=== PATIENT | male | born 1970 | race Caucasian/White ===

== ENCOUNTER 2018-10-29 00:44 | Emergency (ER) | payer SELFPAY ==
--- NOTE | 2018-10-29 01:16 | ERPHSYRPT ---
- History of Present Illness Time Seen by Provider: 10/29/18 01:00 Source: patient, police Exam Limitations: no limitations Physician History: Pt was arrested for drunk driving, he denies any injury or complaints, he is ambulating without help, alert and oriented x4, moderately intoxicated. He was brought here by [employer]ers. Timing/Duration: today Severity: moderate Modifying Factors: Improves With: nothing Associated Symptoms: denies symptoms - Review of Systems Constitutional: No Symptoms Eyes: No Symptoms Ears, Nose, & Throat: No Symptoms Respiratory: No Symptoms Cardiac: No Symptoms Abdominal/Gastrointestinal: No Symptoms Genitourinary Symptoms: No Symptoms Musculoskeletal: No Symptoms Skin: No Symptoms Neurological: No Symptoms Psychological: No Symptoms Hematologic/Lymphatic: No Symptoms All Other Systems: Reviewed and Negative - Nursing Vital Signs Nursing Vital Signs: Initial Vital Signs Temperature 97.7 F 10/29/18 01:27 Pulse Rate 101 H 10/29/18 01:27 Respiratory Rate 18 10/29/18 01:27 Blood Pressure 164/110 10/29/18 01:27 O2 Sat by Pulse Oximetry 98 10/29/18 01:27 Pain Scale Pain Intensity 0 - Physical Exam General Appearance: no apparent distress Eye Exam: PERRL/EOMI, eyes nml inspection Ears, Nose, Throat Exam: normal ENT inspection, pharynx normal, moist mucous membranes Neck Exam: normal inspection, non-tender, supple, No JVD Respiratory Exam: normal breath sounds, lungs clear Cardiovascular Exam: regular rate/rhythm, normal heart sounds, normal peripheral pulses, No murmur Gastrointestinal/Abdomen Exam: soft, normal bowel sounds, No tenderness, No distention, No mass, No guarding, No ecchymosis, No rebound, No organomegaly Back Exam: normal inspection, No CVA tenderness, No vertebral tenderness Extremity Exam: normal inspection, pelvis stable Neurologic Exam: alert, oriented x 3, cooperative, normal mood/affect Skin Exam: normal color, warm, dry, No rash Lymphatic Exam: No adenopathy SpO2 Interpretation: normal O2 Delivery: Room Air - Course Nursing assessment & vital signs reviewed: Yes EKG Interpreted by Me: RATE ([id number]), Sinus Tach, Left [place] Deviation, NORMAL INTERVALS, NORMAL QRS, Non-specific ST Changes, Other (LVH) Ordered Tests: Active Orders 24 hr Category Date Time Status EKG-ER Only STAT Care 10/29/18 01:09 Active ETHYL ALCOHOL Stat Lab 10/29/18 01:37 Received Urine Triage Profile Stat Lab 10/29/18 01:10 Uncollected - Progress Progress: unchanged Progress Note: 10/29/18 01:37 Pt refused blood work. He has been stable, otherwise cooperates with exam. 10/29/18 02:11 He was given 0.1 mg Clonidine, and discharged [place]inny police custody, he refused to give urine specimen. He is medically stable for police custody. Counseled pt/family regarding: lab results, diagnosis, need for follow-up - Departure Departure Disposition: Long Term/[facility]pc Clinical Impression: Alcohol intoxication Qualifiers: Complication of substance-induced condition: uncomplicated Qualified Code(s): F10.920 - Alcohol use, unspecified with intoxication, uncomplicated Hypertension Qualifiers: Hypertension type: unspecified Qualified Code(s): I10 - Essential (primary) hypertension Condition: Stable Critical Care Time: No Referrals: DOCTOR,NO FAMILY [Primary Care Provider] - Instructions: Alcohol Use - When Is Drinking a Problem?, High Blood Pressure in Adults Additional Instructions: Follow up with primary care physician next week, return if severe headaches, vomiting, confusion!
[2018-10-29 02:10] VITALS: BP 192/120; PULSE 100
[2018-10-29] MEDS ORDERED: Catapres 0.1 MG PO ONE (02:11)
[2018-10-29] MEDS ORDERED: Catapres 0.1 MG ONE (02:14)
[2018-10-29 03:24] VITALS: O2SAT 100
[2018-10-29 03:44] LABS: Amphetamine,Urine NEGATIVE (NEGATIVE); Barbiturate,Urine NEGATIVE (NEGATIVE); Benzodiazepine,Urine NEGATIVE (NEGATIVE); Cocaine,Urine NEGATIVE (NEGATIVE); Methadone,Urine NEGATIVE (NEGATIVE); Opiate,Urine NEGATIVE (NEGATIVE); PCP,Urine NEGATIVE (NEGATIVE); THC,Urine NEGATIVE (NEGATIVE)
== END 2018-10-29 03:39 | disposition home or self-care (01) ==
LOC: EEVIPCON 00:44 → ED 00:44
DX: F10.920 Alcohol use, unspecified with intoxication, uncomplicated (principal); I10 Essential (primary) hypertension
CPT/HCPCS: 36415; 80307; 93005; 99284; A9270-GY; G0480